=== PATIENT | male | born 1980 | race Hispanic/Latino ===

== ENCOUNTER 2018-09-04 11:00 | Inpatient (IN) | payer OTHER ==
[~2018-09-04] VITALS: Ht 177.8 cm; Wt 111.5 kg
[2018-09-05 15:24] VITALS: BP 147/76
[2018-09-05 15:25] LABS: BASOPHILS % (AUTO) 0.6 % (0.0-5.0); EOSINOPHILS % (AUTO) 1.2 % (0.0-8.0); HEMATOCRIT 48.1 % (42-54); LYMPHOCYTES % (AUTO) 32.9 % (21.0-51.0); MEAN CORPUSCULAR HEMOGLOBIN 28.3 pg (27.0-33.0); MEAN CORPUSCULAR HGB CONC 34.2 g/dL (32.0-36.0); MEAN CORPUSCULAR VOLUME 82.7 fL (79-99); MONOCYTES % (AUTO) 7.5 % (3.0-13.0); NEUTROPHILS % (AUTO) 57.8 % (40.0-77.0); NUCLEATED RED BLOOD CELLS 0.1 % (0.0-0.19); PLATELET COUNT (AUTO) 222 K/uL (130-400); RED BLOOD CELL COUNT(AUTO) 5.82 MIL/uL (4.50-6.20); RED CELL DISTRIBUTION WIDTH 13.4 % (11.0-15.5); WHITE BLOOD COUNT (AUTO) 7.9 K/uL (4.8-10.8)
[2018-09-05 16:32] LABS: INR 0.97 (0.85-1.15); PARTIAL THROMBOPLASTIN TIME 29.6 SEC (26.3-35.5); PROTHROMBIN TIME 10.2 SEC (9.6-11.6)
--- NOTE | 2018-09-05 16:56 | NUR ---
Pt reported that he has been having thoughts of suicide yesterday 09/04/18 and the day before 09/03/18, when asked if he had a plan pt stated that they vary depending on the environment, when asked if he has suicidal thought today he said that not today and refused to go to ER. Pt reported he saw his psychiatric doctor a few weeks ago, and was taken off medications per (psychiatric md). Pt reports primary Doctor at the [facility] is aware. I called Doctor Villagran and advised him that pt had suicidal thought yesterday and day before. Per Doctor Villagran if patient is not suicidal today, preop pt and reevaluate day of procedure. Gave pt national suicial prevention line phone number and also discussed with the patient if he has any more thoughts of suicide he needs to call 911 or go to the emergency room. Doctor Angeles was notified, no new orders. Pt made a verbal contract and indicated he will not hurt himself this weekend and that he will have his kids this day.
[2018-09-05] MEDS ORDERED: ZOLP10TA2 PO (17:26)
[2018-09-08] VITALS (21 sets, daily range): BP systolic 107–147; BP diastolic 54–89
[2018-09-08] MEDS ORDERED: LACTATED RINGERS 1000ML 1,000 ML IV ONE (07:17)
[2018-09-08] MEDS ORDERED: CEFAZOLIN SODIUM 1 GM VIAL ONE (07:17)
--- NOTE | 2018-09-08 07:55 | NUR ---
appointment on the 20 something of the this month ,ppt states will follow up after surgery Addendum: 09/08/18 at 0802 by BEN RYDER RN RN Amended: Links added.
[2018-09-08] MEDS ORDERED: VANCOMYCIN HCL 1 GM VIAL ONE (08:07)
--- NOTE | 2018-09-08 08:07 | NUR ---
Pt states has suicidal thoughts frequently almost daily .He states he is being seen by psychiatrist ,next appointment at the end of this month.notified Rin Tadeo RN director of case management ,household assistant ,and office director . Addendum: 09/08/18 at 0817 by BEN RYDER RN RN Amended: Links added.
[2018-09-08] MEDS ORDERED: BACITRACIN 50,000 UNIT VIAL ONE (08:08)
[2018-09-08] MEDS ORDERED: THROMBIN-JMI 20000 UNIT KIT TP ONE (08:08)
--- NOTE | 2018-09-08 08:18 | NUR ---
Mother present at bedside will remain with pt until he transfers to the operating room . circulating nurse made aware of suicide precautions. Addendum: 09/08/18 at 0820 by BEN RYDER RN RN Amended: Links added.
[2018-09-08] MEDS ORDERED: NEOSTIGMINE 5MG/5ML SYR IV ONE (08:41)
[2018-09-08] MEDS ORDERED: DEXAMETHASONE SOD PHOSPHATE 10MG/ML 1ML VIAL ONE (08:41)
[2018-09-08] MEDS ORDERED: LIDOCAINE PF 2% 5ML ABBOJECT ONE ×2 (08:41→10:45)
[2018-09-08] MEDS ORDERED: SUCCINYLCHOLINE 200MG/10ML SYR ONE (08:41)
[2018-09-08] MEDS ORDERED: GLYCOPYRROLATE 1 MG/5 ML SYRINGE ONE ×2 (08:41→10:48)
[2018-09-08] MEDS ORDERED: ONDANSETRON HCL 4 MG/2 ML VIAL ONE (08:41)
[2018-09-08] MEDS ORDERED: MIDAZOLAM HCL 1 MG/ML 2ML VIAL ONE (08:41)
[2018-09-08] MEDS ORDERED: PROPOFOL 10 MG/ML 20ML VIAL IV ONE (08:41)
[2018-09-08] MEDS ORDERED: FENTANYL CITRATE PF 50 MCG/1 ML 2ML VIAL ONE ×3 (08:42→10:49)
[2018-09-08] MEDS ORDERED: ROCURONIUM 10MG/1ML SYR 10 MG/ML ML ONE (08:42)
[2018-09-08] MEDS ORDERED: TOBRAMYCIN SULFATE 40MG/1ML VIAL ONE (09:37)
[2018-09-08] MEDS ORDERED: KETOROLAC TROMETHAMINE 60 MG/2 ML VIAL ONE (09:48)
[2018-09-08] MEDS ORDERED: KETOROLAC TROMETHAMINE 30MG/ML ONE (09:52)
[2018-09-08] MEDS: BUPIVACAINE/PF 0.25% 50ML VIAL IJ ONE ×2 (10:07→10:14)
[2018-09-08] MEDS ORDERED: MEPERIDINE-PF 25 MG/ML SYG ONE (11:19)
--- NOTE | 2018-09-08 12:10 | NUR ---
Due to void Addendum: 09/08/18 at 1556 by DANII HURT RN RN Amended: Links added.
[2018-09-08] MEDS ORDERED: ZOLPIDEM TARTRATE 5 MG TAB PO PRN (13:00)
[2018-09-08] MEDS ORDERED: SODIUM CHLORIDE 0.9% 1000ML 1,000 ML IV SCH (13:00)
[2018-09-08] MEDS ORDERED: ACETAMINOPHEN-CODEINE 300/30MG TAB PO PRN (13:00)
[2018-09-08] MEDS ORDERED: MEPERIDINE-PF 75 MG/ML SYG IM PRN (13:00)
[2018-09-08] MEDS ORDERED: TRIMETHOBENZAMIDE HCL 100MG/1ML VIAL IM PRN (13:00)
[2018-09-08] MEDS: ACETAMINOPHEN-CODEINE 300/30MG TAB PO PRN (13:19)
[2018-09-08] MEDS ORDERED: ONDANSETRON HCL 4 MG/2 ML VIAL IVP PRN (13:45)
--- NOTE | 2018-09-08 14:55 | NUR ---
cm initial assessment Met w patient. skilled nursing facilities professional in room on suicide precaution 2/2 to + suicide risk on preop screening. Pt is s/p cervical spine surgery , injury, hx of PSTD, service connected, [facility], getting services from pain specialist and MD for mood disorder. has had many different kinds of meds. Pain control and mood control together is difficult hoping this surgery will help. Advised pt that he will be screened by Dr. Bernardo prior to discharge; verbalized understanding. Pt states last suicide attempt was in 2012, 'my children were little then and didn't really kow me, now they are older; i would not go through with it". lives alone; brother or mom would be providing transport; phone numbers added/face sheet updated;previously inp of adls, no dme, no hh. Call to Traci at [facility]; asked about inpatient pysch if pt is referred; info recieved. CM will follow depending on screening. Will update primary RN Addendum: 09/08/18 at 1513 by SHIRLEY SMITH RN CM Amended: Links added.
[2018-09-08] MEDS: CEFAZOLIN SODIUM 1 GM VIAL IVP SCH (17:15)
[2018-09-08] MEDS ORDERED: MEPERIDINE-PF 50 MG/ML SYG ONE ×2 (20:08→23:16)
[2018-09-09] MEDS: CEFAZOLIN SODIUM 1 GM VIAL IVP SCH ×2 (00:37→09:49)
[2018-09-09 03:38] VITALS: BP 117/61
[2018-09-09 08:00] VITALS: BP 130/62
[2018-09-09] MEDS ORDERED: MULTIVITAMIN TABLET PO SCH (09:00)
[2018-09-09] MEDS: ACETAMINOPHEN-CODEINE 300/30MG TAB PO PRN (09:57)
[2018-09-09 11:00] VITALS: BP 143/75
[2018-09-09] MEDS ORDERED: MULT-1192 PO (13:38)
[2018-09-09] MEDS ORDERED: TYL3 PO (13:39)
[2018-09-09] MEDS ORDERED: DIAZ5TAB PO (13:39)
== END 2018-09-09 16:52 | disposition home or self-care (01) | DRG 473 ==
LOC: EDSTATUS 09-05 11:00 → DAHIP 09-08 06:11 → 4BH 09-08 11:54
PROVIDERS: ADMIT Neurological Surgery; ATTEND Neurological Surgery
PROC: 0RB30ZZ Excision of Cervical Vertebral Disc, Open Approach (ICD-10-PCS; 2018-09-08)
PROC: 0RG10AJ Fusion of Cervical Vertebral Joint with Interbody Fusion Device, Posterior Approach, Anterior Column, Open Approach (ICD-10-PCS; principal; 2018-09-08 09:01)
DX: M50.123 Cervical disc disorder at C6-C7 level with radiculopathy (principal); M25.78 Osteophyte, vertebrae; F43.10 Post-traumatic stress disorder, unspecified; F32.9 Major depressive disorder, single episode, unspecified; F41.9 Anxiety disorder, unspecified; F39 Unspecified mood [affective] disorder
CPT/HCPCS: 36415; 72020; 85025; 85610; 85730; G0378; J0330; J0690; J1030; J1100; J1885; J2001; J2175; J2250; J2405; J2704; J2710; J3010; J3260; J3370; J3490; J7120